=== PATIENT | male | born 1955 | race Caucasian/White ===

== ENCOUNTER 2021-11-26 16:17 | Emergency (ER) | payer MEDICARE ==
[~2021-11-26] VITALS: Ht 177.8 cm; Wt 80.0 kg
[2021-11-26] MEDS ORDERED: LIDOcaine 1% W/epiNEPHrine 1:100,000 20ml vial SQ ONE (17:45)
[2021-11-26] MEDS ORDERED: LIDOcaine 1% w/EPI 1:100,000 30ml vial (MDV) SQ ONE (17:50)
--- NOTE | 2021-11-26 20:15 | NUR ---
PT BEING IRRIGATED PER TECH
--- NOTE | 2021-11-26 21:06 | NUR ---
PT UP TO THE BR
[2021-11-26] MEDS ORDERED: CEFI400C PO (21:45)
[2021-11-26] MEDS ORDERED: HYDR-3965 PO (21:45)
[2021-11-26] MEDS ORDERED: HYDROcodone/acetaminophen 10/325mg tab PO ONE (21:50)
[2021-11-26 22:04] VITALS: BP 136/78
== END 2021-11-26 22:08 | disposition home or self-care (01) ==
LOC: VAS 16:17
DX: S68.111A Complete traumatic metacarpophalangeal amputation of left index finger, initial encounter (principal); S68.012A Complete traumatic metacarpophalangeal amputation of left thumb, initial encounter; W29.3XXA Contact with powered garden and outdoor hand tools and machinery, initial encounter; Y93.89 Activity, other specified; Y92.89 Other specified places as the place of occurrence of the external cause; Y99.8 Other external cause status
CPT/HCPCS: 12001; 73120; 96365; 99285; A6223; J0690; J3490; A6449

== ENCOUNTER 2021-11-28 16:38 | Emergency (ER) | payer MEDICARE ==
[~2021-11-28] VITALS: Ht 177.8 cm; Wt 72.7 kg
[~2021-11-28 16:38] MED LIST: CEFI400C PO; HYDR-3965 PO
[2021-11-28 16:44] VITALS: BP 139/71
== END 2021-11-28 19:39 | disposition home or self-care (01) ==
LOC: ER 16:38
DX: Z48.00 Encounter for change or removal of nonsurgical wound dressing (principal); Z72.89 Other problems related to lifestyle; Z79.2 Long term (current) use of antibiotics
CPT/HCPCS: 99281

== ENCOUNTER 2021-12-06 08:56 | Day surgery (SDC) | payer MEDICARE ==
[2021-12-03 11:25] LABS: BASOPHILS % (AUTO) 0.7 % (0-1); EOSINOPHILS # (AUTO) 0.2 X10'3 (0-0.9); EOSINOPHILS % (AUTO) 2.5 % (0-6); LYMPHOCYTES # (AUTO) 2.8 X10'3 (1.1-4.8); LYMPHOCYTES % (AUTO) 38.7 % (21-51); MEAN CORPUSCULAR HEMOGLOBIN 31.6 PG (27.0-31.0); MEAN CORPUSCULAR HGB CONC 33.9 g/dL (33.0-36.5); MEAN CORPUSCULAR VOLUME 93.1 FL (78-98); MEAN PLATELET VOLUME 6.2 FL (7.4-10.4); MONOCYTES # (AUTO) 0.6 X10'3 (0-0.9); MONOCYTES % (AUTO) 8.2 % (2-12); NEUTROPHILS # (AUTO) 3.7 X10'3 (1.8-7.7); NEUTROPHILS % (AUTO) 49.9 % (42-75); PRE OP HEMATOCRIT 38.4 % (42.0-52.0); PRE OP PLATELET COUNT 291 X10'3 (140-440); RED BLOOD COUNT 4.12 X10'6 (4.70-6.10); RED CELL DISTRIBUTION WIDTH 13.9 % (11.5-14.5)
[2021-12-03 11:32] LABS: ALBUMIN 3.6 G/DL (3.4-5.0); ALBUMIN/GLOBULIN RATIO 0.9 (1.1-1.5); ALKALINE PHOSPHATASE 48 IU/L (46-116); BLOOD UREA NITROGEN 12 MG/DL (7-18); BUN/CREATININE RATIO 13.8 (5.4-32.0); CALCIUM 8.8 MG/DL (8.5-10.1); CHLORIDE 99 MMOL/L (99-107); CREATININE 0.87 MG/DL (0.60-1.10); PRE OP ALT 25 U/L (30-65); PRE OP ANION GAP 8 (8-16); PRE OP AST 20 U/L (10-37); PRE OP BILIRUB, TOTAL 0.4 MG/DL (0.0-1.0); PRE OP GLUCOSE 89 MG/DL (70-104); PRE OP POTASSIUM 4.3 MMOL/L (3.4-5.1); PRE OP SODIUM 135 MMOL/L (135-145); TOTAL CARBON DIOXIDE 28.3 MMOL/L (24-32); TOTAL PROTEIN 7.5 G/DL (6.4-8.2); eGFR 88 ML/MIN
[~2021-12-06] VITALS: Ht 177.8 cm; Wt 72.3 kg
[2021-12-06] VITALS (8 sets, daily range): BP systolic 138–159; BP diastolic 78–99
[~2021-12-06 08:56] MED LIST changes: -CEFI400C PO; +LIDOcaine 1% 30ml preserv. free vial ONE; +ceFAZolin inj. 2,000 MG in dextrose 5%-water 100 ML IV ONE; +famotidine 20mg tablet PO ONE; +ringers solution, lacted 1,000 ML IV SCH
[2021-12-06] MEDS ORDERED: BUPIVAcaine/PF 2.5mg/ml (0.25%) 10ml vial ONE ×2 (11:50→13:03)
--- NOTE | 2021-12-06 13:14 | NUR ---
Received from OR via [facility], accompanied by Anesthesiologist DR QUAN and report given by Anesthesiologist AND [employer]PUT[employer]. PT AWAKE, DENIES PAIN. LEFT HAND/ THUMB AND 4TH FINGER W/DRSG COVERING CDI. Addendum: 12/06/21 at 1429 by Bonny Soriano RN Amended: Links added.
--- NOTE | 2021-12-06 14:14 | NUR ---
DR DELVALLE IN TO SEE PT. PT UP AND ABLE TO AMBULATE SAFELY, VOIDED X 1. D/C INSTRUCTIONS GIVEN AND GONE OVER W/PT WHO VERBALIZED UNDERSTANDING. PT D/CD TO HOME BY AMBULATION TO PRIVATE VEHICLE W/O INCIDENT. Addendum: 12/06/21 at 1426 by Bonny Soriano RN Amended: Links added.
== END 2021-12-06 14:14 | disposition home or self-care (01) ==
LOC: PAS 08:56
PROVIDERS: ATTEND Orthopaedic Surgery Hand Surgery
DX: S68.012A Complete traumatic metacarpophalangeal amputation of left thumb, initial encounter (principal); X58.XXXA Exposure to other specified factors, initial encounter; Y93.89 Activity, other specified; Y92.89 Other specified places as the place of occurrence of the external cause; Y99.8 Other external cause status; Z79.899 Other long term (current) drug therapy; Z98.890 Other specified postprocedural states
CPT/HCPCS: 26951; 36415; 80053; 82948; 85025; 93005; A6222; J0690; J3490; J7030; J7060; J7120; Z7506; Z7508; Z7512; A6449; A7000